=== PATIENT | female | born 1955 | race Caucasian/White ===

== ENCOUNTER → 2016-11-26 | Outpatient (CLI) | payer OTHER ==
--- NOTE | 2016-11-26 18:16 | DX ---
Chest, Two Views - November 26, 2016, at 1654 hours History: Productive cough. R05. History of LIZBETH infection. Comparison: January 2016 Findings: Cardiac silhouette is within normal range. Increased interstitial markings throughout both lungs appear similar to the January 2016 study, at which time a CT demonstrated progressive LIZBETH disease . No interval improvement or definite new infiltrates. Cervical fusion hardware. No pleural effusion or pneumothorax. Impression: 1. Diffuse bilateral interstitial opacities without significant change since January 2016, probably rep resenting severe diffuse LIZBETH infection without definite new infiltrates. 2. Consider CT chest imaging if clinically indicated.
== END ==
LOC: FIMAGING 16:55
PROVIDERS: ATTEND Internal Medicine Infectious Disease
DX: J98.4 Other disorders of lung (principal); I25.2 Old myocardial infarction

== ENCOUNTER → 2016-12-14 | Outpatient (CLI) | payer OTHER | LOC: FIMAGING 15:07 | PROVIDERS: ATTEND Internal Medicine Infectious Disease | DX: A31.0 Pulmonary mycobacterial infection (principal); A43.9 Nocardiosis, unspecified; R05 Cough ==

== ENCOUNTER → 2017-02-21 | Outpatient (CLI) | payer OTHER | PROVIDERS: ATTEND Internal Medicine Gastroenterology | DX: R13.12 Dysphagia, oropharyngeal phase (principal); A31.0 Pulmonary mycobacterial infection | CPT/HCPCS: 92611-GN ==

== ENCOUNTER → 2017-04-09 | Outpatient (CLI) | payer OTHER | LOC: CIMAGING 15:13 | PROVIDERS: ATTEND Neurological Surgery | DX: Z09 Encounter for follow-up examination after completed treatment for conditions other than malignant neoplasm (principal); Z98.1 Arthrodesis status | CPT/HCPCS: 72050-PO ==

== ENCOUNTER → 2017-05-03 | Outpatient (CLI) | payer OTHER ==
[~2017-05-03] MED LIST: IOPAMIDOL (ISOVUE 370) 100 ML BTL IV ONE
== END ==
LOC: FIMAGING 07:54
PROVIDERS: ATTEND Neurological Surgery
DX: M50.323 Other cervical disc degeneration at C6-C7 level (principal); M89.38 Hypertrophy of bone, other site; J98.4 Other disorders of lung; Z98.1 Arthrodesis status
CPT/HCPCS: Q9967

== ENCOUNTER → 2017-06-25 | Outpatient (CLI) | payer OTHER | LOC: FIMAGING 08:16 | PROVIDERS: ATTEND Obstetrics & Gynecology | DX: Z12.31 Encounter for screening mammogram for malignant neoplasm of breast (principal) | CPT/HCPCS: G0202 ==

== ENCOUNTER 2017-06-28 05:36 | Inpatient (IN) | payer OTHER ==
[2017-06-28] MEDS ORDERED: GABAPENTIN 300 MG CAP PO ONE (05:41)
[2017-06-28] MEDS ORDERED: ceFAZolin 2 GM/DEXTROSE 100 ML IV ONE (05:41)
[2017-06-28] MEDS ORDERED: ACETAMINOPHEN 500 MG TAB PO ONE (05:41)
[2017-06-28] MEDS ORDERED: LR 1,000 ML IV ONE (06:20)
[2017-06-28] MEDS ORDERED: LIDOCAINE 1% 2 ML INJ ID PRN (06:20)
[2017-06-28] MEDS ORDERED: LIDOCAINE 1% 2 ML INJ ONE (06:23)
[2017-06-28] MEDS ORDERED: BACITRACIN 50,000 UNITS/10 ML SYR IRR ONE (06:24)
[2017-06-28] MEDS ORDERED: SURGIFLO MATRIX KIT WITH THROMBIN TP ONE (06:24)
[2017-06-28] MEDS ORDERED: THROMBIN (BOVINE) 20,000 UNIT VIAL TP ONE (06:24)
[2017-06-28] MEDS ORDERED: CHLORHEXIDINE GLUC HIBICLENS 118 ML BTL TP ONE (06:24)
[2017-06-28] MEDS ORDERED: MIDAZOLAM 2 MG/2 ML VIAL IVP ONE (06:46)
--- NOTE | 2017-06-28 06:51 | PDANEPAE ---
ANE History of Present Illness 62 yo F w h/o cervical spine injury here for C6-7 ACDF ANE Past Medical History - Cardiovascular History Hx Hypertension: No Hx Arrhythmias: No Hx Chest Pain: No Hx Coronary Artery / Peripheral Vascular Disease: No Hx CHF / Valvular Disease: No Hx Palpitations: No Cardiovascular History Comment: LOW BP - Pulmonary History Hx COPD: No Hx Asthma/Reactive Airway Disease: Yes Hx Recent Upper Respiratory Infection: Yes Hx Oxygen in Use at Home: No Hx Sleep Apnea: No Sleep Apnea Screening Result - Last Documented: Negative Pulmonary History Comment: Uses 2 inhalers BID. MYCOBACTERIUM AVIUM COMPLEX LUNG DISEASE 2007. BRONCHOPNEUMONIA 01/15/2016. 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 Concussion 1999. - Endocrine History Hx Diabetes: No Endocrine History Comment: HYPOTHYROID - Renal History Hx Renal Disorders: Yes Renal History Comment: urgency - Liver History Hx Hepatic Disorders: No - Neurological & Psychiatric Hx Hx Neurological and Psychiatric Disorders: Yes Neurological / Psychiatric History Comment: L arm weakness, herniated disc C6/ 7. Cervical stenosis. Neuropathy in legs. Pain -post neck. - Cancer History Hx Cancer: No - Congenital Disorder History Hx Congenital Disorders: No - GI History Hx Gastrointestinal Disorders: No Gastrointestinal History Comment: GERD - Other Health History Other Health History: thrush. Osteopenia. Difficulty swallowing pills. will remove stitches 06-20-17 s/p gum sx. - Chronic Pain History Chronic Pain: Yes (COUGH) - Surgical History Prior Surgeries: Gum grafting at oral MD's office 06-06-17;. CERVICAL 12/15/ FUSION 2002. LAPAROTOMY . laparoscopies (total of 6). HYSTERECTOMY 1988. bilat inguinal hernia ANE Review of Systems Review of Systems: - Exercise capacity METS (RN): 4 METS ANE Patient History - Allergies Allergies/Adverse Reactions: ethambutol Allergy (Verified 06/12/17 15:15) Other-Enter Comments morphine Allergy (Verified 06/12/17 15:15) Loss of consciousness - Home Medications Home medications: home medication list seen and reviewed Home Medications: Ascorbic Acid [Vitamin C 500 mg (*)] 500 mg PO BID 01/14/16 [Last Taken 21:00] Cholecalciferol Vit D3 [Vitamin D3 (*)] 2,000 units PO BID 01/14/16 [Last Taken 01/13/16 21:00] Estradiol [Minivelle] 0.1 mg TD SUWE 01/14/16 [Last Taken 01/11/16] Ibuprofen [Motrin (*)] 800 mg PO TID PRN 01/14/16 [Last Taken 01/13/16 18:00] Promethazine HCl/Codeine [Prometh-Codein 6.25-10 mg/5 ml] 5 ml PO TID PRN [Last Taken 01/13/16 21:00] Thyroid [[place]see Thyroid 60 MG (*)] 60 mg PO DAILY@01/14/16 [Last Taken 07:00] guaiFENesin [Guaifenesin ER] 1,200 mg PO DAILY PRN 01/14/16 [Last Taken 07:00] Albuterol Sulfate [Ventolin Hfa] 2 puffs IH BID PRN 06/03/17 [Last Taken Unknown ] Beclomethasone Qvar 80 [Qvar 80 (*)] 2 puffs IH BID 06/03/17 [Last Taken Unknown ] Benzonatate [Tessalon Pearles] 100 mg PO TID PRN 06/03/17 [Last Taken Unknown] Esomeprazole Mag Trihydrate [Nexium] 40 mg PO DAILY 06/03/17 [Last Taken Unknown ] Glucosam/Chondr/Collagn/Hyalur [Glucosamine & Chondroitin Cap] 1 each PO BID [Last Taken Unknown] Nystatin Susp [Mycostatin Oral Liquid] 15 ml PO DAILY PRN 06/03/17 [Last Taken Unknown] Sulfamethox/Tmp 800/160 mg [Bactrim Ds] 1 tab PO BID 06/03/17 [Last Taken Unknown] - NPO status NPO Since - Liquids (Date): 06/28/17 NPO Since - Liquids (Time): 00:01 NPO Since - Solids (Date): 06/27/17 NPO Since - Solids (Time): 19:30 - Anes Hx Anes Hx: post operative nausea - Smoking Hx Smoking Status: Former smoker - Alcohol Use Alcohol Use: Rarely - Family Anes Hx Family Anes Hx: none ANE Labs/Vital Signs - Vital Signs Blood Pressure: 102/75 Heart Rate: 79 Respiratory Rate: 16 O2 Sat (%): 95 Height: 160.02 cm Weight: 55.792 kg ANE Physical Exam - Airway Neck exam: decreased ROM, spinal fusion Mallampati Score: Class 2 Mouth exam: normal dental/mouth exam - Pulmonary Pulmonary: no respiratory distress - Cardiovascular Cardiovascular: regular rate and rhythym - ASA Status ASA Status: III ANE Anesthesia Plan Anesthesia Plan: general endotracheal anesthesia (1/2 MAC volatile) Specialized Airway: video laryngoscope Total IV Anesthesia: Yes
--- NOTE | 2017-06-28 06:55 | PDHPUP ---
History & Physical Update H&P update statement: This history and physical update is based on an assessment of the patient which was completed after admission or registration (within 24 hours), but prior to the surgery/procedure. H&P update: H&P reviewed & patient examined, no change in patient's condition since H&P completed (Consents signed and site marked. Surgery to be completed with Dr Power of ENT.)
[2017-06-28] MEDS ORDERED: REMIFENTANIL HCL 1 MG VIAL ONE (07:01)
[2017-06-28] MEDS ORDERED: fentaNYL 100 MCG/2 ML INJ ONE ×2 (07:01→09:13)
[2017-06-28] MEDS ORDERED: PROPOFOL/EMULSION 500 MG/50 ML BOTTLE IV ONE (07:02)
[2017-06-28] MEDS ORDERED: PROPOFOL 200 MG/20 ML VIAL ONE (07:02)
[2017-06-28] MEDS ORDERED: ROCURONIUM 50 MG/5 ML VIAL ONE (07:11)
[2017-06-28] MEDS ORDERED: LIDOCAINE 2% 100 MG/5 ML SYR ONE (07:11)
[2017-06-28] MEDS ORDERED: DEXAMETHASONE 4 MG/ML VIAL ONE (07:46)
[2017-06-28] MEDS ORDERED: ONDANSETRON 4 MG/2 ML VIAL ONE (07:52)
[2017-06-28] MEDS ORDERED: NYSTATIN PO PRN (08:13)
[2017-06-28] MEDS ORDERED: BENZONATATE 100 MG CAP PO PRN (08:13)
[2017-06-28] MEDS ORDERED: GUAIFENESIN 1200 MG PO PRN (08:13)
[2017-06-28] MEDS ORDERED: PROMETHAZINE HCL PO PRN ×2 (08:13→11:30)
[2017-06-28] MEDS ORDERED: CODEINE PO PRN ×2 (08:13→11:30)
[2017-06-28] MEDS ORDERED: DIAZEPAM 10 MG/2 ML SYR IVP PRN (08:15)
[2017-06-28] MEDS ORDERED: POLYETHYLENE GLYCOL 3350 17 GM PKT PO PRN (08:15)
[2017-06-28] MEDS ORDERED: LACTULOSE 20 GM/30 ML UDCUP PO PRN (08:15)
[2017-06-28] MEDS ORDERED: DIAZEPAM 5 MG TAB PO PRN (08:15)
[2017-06-28] MEDS ORDERED: diphenhydrAMINE 25 MG CAP PO PRN (08:15)
[2017-06-28] MEDS ORDERED: NS 1,000 ML IV SCH (08:15)
[2017-06-28] MEDS ORDERED: BISACODYL 10 MG SUPP PR PRN (08:15)
[2017-06-28] MEDS ORDERED: PROMETHAZINE HCL 25 MG/ML INJ IVP PRN ×2 (08:15→09:08)
[2017-06-28] MEDS ORDERED: MAGNESIUM HYDROXIDE 30 ML UDCUP PO PRN (08:15)
[2017-06-28] MEDS ORDERED: HYDROmorphONE/DILAUDID 1 MG/ML INJ IVP PRN ×2 (08:20→09:08)
[2017-06-28] MEDS ORDERED: traMADol 50 MG TAB PO PRN (08:21)
[2017-06-28] MEDS ORDERED: NON-FORMULARY NEW DRUG (Esomeprazole Mag Trihydrate [Nexium] 40 MG) PO SCH (09:00)
[2017-06-28] MEDS ORDERED: fentaNYL 100 MCG/2 ML INJ IVP PRN (09:08)
[2017-06-28] MEDS ORDERED: ONDANSETRON 4 MG/2 ML VIAL IVP PRN (09:08)
[2017-06-28] MEDS ORDERED: OXYCODONE/APAP 5/325 TAB PO PRN (09:08)
[2017-06-28] MEDS ORDERED: NALOXONE HCL 0.4 MG/ML INJ IVP PRN (09:08)
[2017-06-28] MEDS ORDERED: SUGAMMADEX SODIUM 200 MG/2 ML VIAL IVP ONE (09:26)
--- NOTE | 2017-06-28 10:13 | POSTOPPROG ---
Post Op Note Date of Operation: 06/28/17 Surgeon: Bhakti Robertson Software Project Lead: Josi Robertson PA-C Anesthesiologist: Toña Anesthesia: GET(General Endotracheal) Pre-op Diagnosis: Cervical stenosis Post-op Diagnosis: same Indication: left arm pain and weakness Procedure: C67 ACDF with prior hardware exploration and removal Findings: Please see dictation Inf/Abcess present in the surg proc area at time of surgery?: No Depth: Organ Space EBL: 50-100 Complications: none Drains: Hugo Lemus Specimen(s): none PA Addendum - Addendum .: S: Pt resting in bed. Denies pain. 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
[2017-06-28] MEDS ORDERED: NYSTATIN 100000 UNIT/ML PO PRN (11:30)
[2017-06-28] MEDS: oxyCODONE IR 5 MG TAB PO PRN ×5 (11:32→21:24)
[2017-06-28] MEDS: ONDANSETRON 4 MG/2 ML VIAL IVP PRN (11:42)
[2017-06-28] MEDS: BECLOMETHASONE QVAR 80 MDI IH SCH ×2 (11:52→21:14)
--- NOTE | 2017-06-28 13:19 | GOP ---
[f rep st] OPERATIVE REPORT DATE OF OPERATION: 06/28/2017 SURGEON: Hans Logan MD COMPLICATIONS: None. REAL ESTATE LEGAL ASSISTANT: MAURICIO Rangel ANESTHESIA: General. PREOPERATIVE DIAGNOSIS: 1. Adjacent level breakdown, C6-C7 with history of anterior cervical fusion. 2. Cervicalgia. 3. Radiculopathy. 4. Treatment refractory to nonoperative management. POSTOPERATIVE DIAGNOSIS: 1. Adjacent level breakdown, C6-C7 with history of anterior cervical fusion. 2. Cervicalgia. 3. Radiculopathy. 4. Treatment refractory to nonoperative management. PROCEDURE PERFORMED: 1. Anterior arthrodesis with approach to C5, C6, and C7. 2. Exploration of prior inferior hardware, C5-C6 with subsequent partial hardware removal over C5-C6. 3. C6-C7 diskectomy with bilateral foraminotomies, osteophytectomies, and interbody fusion using a 7 mm titanium coated PEEK cage filled with morselized autograft and allograft. 4. Anterior cervical fusion, C6-C7, with a 19 mm Medtronic Zevo plate. 5. Use of intraoperative fluoroscopy, less than 1 hour physician time. 6. Use of neuromonitoring. 7. Use of operating microscope. FINDINGS: per imaging with quite a bit of scar tissue from her prior left sided anterior surgical approach SPECIMENS: None. ESTIMATED BLOOD LOSS: 50 mL. INDICATIONS: The patient is a 62-year-old with a very complicated medical history, including prior anterior cervical diskectomy and fusion, after which she developed adjacent level breakdown, C6-C7. We discussed multiple different options for her, and she opted to proceed forth with surgery as described above. DESCRIPTION OF PROCEDURE: Patient brought to the operating theater and underwent general endotracheal anesthesia without complications. She had Venodyne's, RACHEL hose, and the appropriate lines placed by Anesthesia. At this point, using lateral fluoroscopy and a spinal needle, we picked our entry point to the C5, C6, and C7 levels. This was marked as a transverse incision on the left side of her neck. This area was then prepped and draped in the usual sterile surgical fashion. With the assistance of Dr. Jun Power of ENT, we then completed an anterior exposure into the C5, C6, C7 levels. He will dictate in a separate operative report the anterior cervical approach. Once we completed our exposure, we had access to the inferior aspect of the plate over C5/6 and lupe C6/7 disc space. At this point, I did not feel I could get a plate on at the C6-C7 level because of its proximity to the C6/7 dic space. I therefore used a cutting carbide bur bit to cut the plate between the C5-C6 level and removed the 2 screws that were into the C6 vertebral body and subsequently removed the cut CSLT plate and screws and passed them off the field. We explored this level and she was noted to be solidly fused at this level given the bony overgrowth. At this point, we brought the microscope into the field to assist with microscopic dissection and to maintain illumination and magnification. We put [place] pins into the vertebral bodies of C6 and C7 and completed a C6-7 diskectomy. We prepared the cartilaginous endplates and measured interbody space. We placed a 7 mm titanium coated PEEK cage filled with morselized autograft and allograft into the C6-C7 disk space. We removed the [place] pins and drilled down the anterior osteophytes. We then secured a 19 mm Medtronic Zevo plate onto the vertebral bodies of C6 and C7. AP and lateral x-rays demonstrated good placement of the hardware. We irrigated copiously with bacitracin irrigation. We left a drain in the subfascial space. The wound was then closed in multiple layers using Vicryl sutures to deep layers and Dermabond for the skin. Patient's wounds were dressed sterilely. She was then awakened, extubated, and taken to the recovery room in stable condition. There were no complications and no noted changes on neuromonitoring throughout the procedure. /[id number]/MODL MTDD
[2017-06-28] MEDS: ACETAMINOPHEN 500 MG TAB PO SCH ×2 (13:41→21:24)
[2017-06-28] MEDS: ceFAZolin 2 GM/DEXTROSE 100 ML IV SCH ×2 (14:46→23:37)
[2017-06-28] MEDS: SCOPOLAMINE HYDROBROMIDE 1 MG/3 DAYS PATCH TD SCH (15:06)
[2017-06-28] MEDS: FAMOTIDINE 20 MG TAB PO SCH ×2 (15:07→21:18)
[2017-06-28] MEDS: CHOLECALCIFEROL VIT D3 1,000 UNITS TAB PO SCH ×2 (15:07→21:18)
[2017-06-28] MEDS: ASCORBIC ACID 500 MG TAB PO SCH ×2 (15:07→21:19)
[2017-06-28] MEDS: SENNOSIDES/DOCUSATE SODIUM TAB PO SCH ×2 (15:07→21:16)
--- NOTE | 2017-06-28 16:45 | POSTANESTH ---
Post Anesthetic Evaluation Cardiovascular Status: Normal, Stable, Similar to Pre-Op Cond Respiratory Status: Normal, Stable, Similar to Pre-op Cond. Level of Consciousness/Mental Status: Can Participate in Eval, Alert and Oriented Pain Control: Adequate, Prn Tx Ordered, Inadeq, Add Tx Required Nausea/Vomiting Control: Adequate, Prn Tx Ordered, Inadeq, Add Tx Reqired Complications Possibly Related to Anesthesia: None Noted
[2017-06-28] MEDS ORDERED: FLU VACC QS 2017-18 (3YR+)/PF 0.5 ML SYR (FLUARIX QUAD) IM ONE (19:51)
[2017-06-28] MEDS: ALBUTEROL 200 PUFFS/18 GM MDI IH PRN (21:15)
[2017-06-28] MEDS: SULFAMETHOX/TMP 800/160 MG 1 TAB PO SCH ×2 (21:18→22:05)
[2017-06-29] MEDS: oxyCODONE IR 5 MG TAB PO PRN ×6 (01:30→23:12)
[2017-06-29] MEDS: BENZONATATE 100 MG CAP PO PRN ×2 (03:50→20:18)
[2017-06-29] MEDS: guaiFENesin 600 MG TAB.ER PO PRN ×2 (03:52→20:30)
[2017-06-29] MEDS: ACETAMINOPHEN 500 MG TAB PO SCH ×3 (06:17→20:19)
[2017-06-29] MEDS: ALBUTEROL 200 PUFFS/18 GM MDI IH PRN ×3 (06:18→20:27)
[2017-06-29] MEDS: THYROID 60 MG TAB PO SCH (06:18)
[2017-06-29] MEDS: BECLOMETHASONE QVAR 80 MDI IH SCH ×2 (06:18→20:27)
--- NOTE | 2017-06-29 07:38 | NEUSURGPN ---
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 Subjective: Mild tenderness over the incision. Nnamdi difficulty with breathing Objective: NAD A&Ox3 MAEx4 5/5 and equal in BUE and BLE. Neck soft, supple, no edema - Physician Discussed Patient with Dr.: Holli Neurosurgery Physical Exam - Vitals, I&O, Labs I and O 06/28/17 06/29/17 06/30/17 05:59 05:59 05:59 Intake Total 1700 Output Total 2770 Balance -1070 Weight 55.792 kg Intake: Oral (ml) 400 IV Intake (ml) 1200 IV Infused (ml) 100 ceFAZolin 2 GM/DEXTROSE 100 100 ml @ 200 mls/hr IV Q8H [facility] Rx#:[id number] Output: Urine (ml) 2750 Bedside Commode 200 Toilet 2550 ROMAINE Drain Output (ml) 20 Anterior Neck Hugo 20 Lemus Vital Signs Temp Pulse Resp BP Pulse Ox 36.4 C 68 18 110/59 L 97 06/29/17 03:41 06/29/17 03:41 06/29/17 03:41 06/29/17 03:41 06/29/17 03:41 ICD10 Worksheet Patient Problems: Problems Problem Status Onset Chest pain on breathing Acute LIZBETH (mycobacterium avium-intracellulare) infection Acute Multifocal lung consolidation Acute Pneumonia Acute
[2017-06-29] MEDS: CHOLECALCIFEROL VIT D3 1,000 UNITS TAB PO SCH ×2 (09:00→20:36)
[2017-06-29] MEDS: FAMOTIDINE 20 MG TAB PO SCH ×2 (09:01→20:22)
[2017-06-29] MEDS: ASCORBIC ACID 500 MG TAB PO SCH ×2 (09:01→20:22)
[2017-06-29] MEDS: SULFAMETHOX/TMP 800/160 MG 1 TAB PO SCH ×2 (09:01→20:21)
[2017-06-29] MEDS: ONDANSETRON DISINTEGRATING 4 MG TAB PO PRN (09:02)
[2017-06-29] MEDS: SENNOSIDES/DOCUSATE SODIUM TAB PO SCH ×2 (09:02→20:18)
[2017-06-29 09:07] LABS: % IMMATURE GRANULYOCYTES 0.2 % (0.0-1.1); ABSOLUTE IMMATURE GRANULOCYTES 0.02 10^3/uL (0.00-0.10); ADD DIFF? NO; ADD MORPH? NO; ADD SCAN? NO; ATYPICAL LYMPHOCYTE FLAG 0 (0-99); FRAGMENT RBC FLAG 0 (0-99); HEMATOCRIT 36.2 % (38.0-47.0); HEMOGLOBIN 11.7 g/dL (12.6-16.3); LEFT SHIFT FLG 0 (0-99); LIPEMIA HEMOLYSIS FLAG 80 (0-99); MEAN CELL HEMOGLOBIN 30.2 pg (27.9-34.1); MEAN CELL HEMOGLOBIN CONCENTR. 32.3 g/dL (32.4-36.7); MEAN CELL VOLUME 93.3 fL (81.5-99.8); MEAN PLATELET VOLUME 9.1 fL (8.7-11.7); PLATELET CLUMPS FLAG 10 (0-99); PLATELET COUNT 256 10^3/uL (150-400); RED BLOOD CELL COUNT 3.88 10^6/uL (4.18-5.33); RED CELL DISTRIBUTION WIDTH 12.8 % (11.5-15.2)
[2017-06-29] MEDS: PANTOPRAZOLE SODIUM 40 MG TAB PO SCH (09:10)
[2017-06-29 09:18] LABS: ANION GAP 10 mEq/L (8-16); CALCIUM 9.1 mg/dL (8.5-10.4); CARBON DIOXIDE 24 mEq/l (22-31); CHLORIDE 104 mEq/L (97-110); CREATININE 0.7 mg/dL (0.6-1.0); GLOMERULAR FILTRATION RATE > 60; GLUCOSE 119 mg/dL (70-100); POTASSIUM 3.8 mEq/L (3.5-5.2); SODIUM 138 mEq/L (134-144)
--- NOTE | 2017-06-29 09:32 | GCON ---
[f rep st] CONSULTATION DATE OF CONSULTATION: 06/29/2017 REASON FOR CONSULTATION: I was asked by Dr. Logan to see the patient in regard to her history of MA C, as well as increased cough. HISTORY OF PRESENT ILLNESS: This is a 62-year-old female, who is postop day #1 after an ACDF by Dr. Logan. The operation itself was relatively unremarkable. She has expected postoperative pain. She has a history of bronchiectasis, as well as MAC and Nocardia, followed by Doctors and Ryan as an outpatient. This began in 2007, when she was diagnosed with MAC. At that time, she underwent 2 years of appropriate AFB treatment including ethambutol, rifabutin, azithromycin and moxifloxacin. She had been seen at [facility] as well. She had some vision loss, which was attributed to eth ambutol. 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 After that, she was doing relatively well until January of last year, whe n she was admitted for pneumonia. Sputum cultures then grew out both MAC, as well as Nocardia. The Nocardia was targeted for treatment, feeling that if the Nocardia burden was kept down her body would keep the MAC under check itself. She initially underwent a course of moxifloxacin, and then had bee n changed to Bactrim. Current plans are to have her on indefinite chronic Bactrim. She tells me that for about the last week of surgery she has had an increasing cough. She thinks yenifer t she has had some night sweats as well overnight. She feels slightly more dyspneic than normal, tho ugh she is normally quite active. After her surgery, she coughed up a significant amount of sputum, which is a change for her. PAST MEDICAL/SURGICAL HISTORY: 1. History of MAC. 2. Bronchiectasis. 3. Nocardia. 4. Concussion. 5. GERD. 6. Hypothyroid. 7. IgM deficiency. MEDICATIONS: Please see medication reconciliation. ALLERGIES: Ethambutol, morphine. FAMILY HISTORY: Reviewed and noncontributory. SOCIAL HISTORY: She lives at home with her . She drinks about 1 glass of wine a week. She d oes not smoke. REVIEW OF SYSTEMS: A 10-point review of systems is conducted and is negative except per HPI. PHYSICAL EXAM: VITAL SIGNS: Blood pressure 110/59, heart rate 68, respiration rate 18, saturating 9 7% on 2 L. Temperature 36.4. GENERAL: A very pleasant female who is resting comfortably. No acute distress. HEENT: Normocephalic, atraumatic. NECK: Soft collar in place. She has a ROMAINE drain with blood. CARDIOVASCULAR: Regular rate and rhythm. No murmurs, rubs, or gallops. PULMONARY: No res piratory distress. LUNGS: Quite clear to auscultation bilaterally. ABDOMEN: Soft, nontender, nond istended. SKIN: Shows no rash. : No Hua. NEUROLOGIC: Alert and oriented x3. She is moving a ll extremities. PSYCHIATRIC: Exam shows normal mood and affect. LABS: These are pending. DATA: 1. I reviewed her chart. 2. I ordered a chest x-ray. 3. I discussed this with ROCKY Crenshaw. IMPRESSION & PLAN: A 62-year-old female, postoperative day #1 status post anterior cervical discecto my and fusion, who presents with symptoms concerning for reactivation of Nocardia or MAC. 1. Cough/increased sputum production: Certainly concerning for reactivation of her known disease. May also be typical respiratory pathogen, including other viruses or bacteria. Will initiate workup with a set of labs, chest x-ray, sputum culture, respiratory pathogen PCR. We will provide her suppo rtive care including inhalers, continue her incentive spirometer, flutter valve. We will discuss paulina Rogel. Further workup and treatment will depend on findings from the above. 2. Postoperative day #1 status post ACDF: Care per Neurosurgery. Plan is to take ROMAINE drain out toda y. 3. Hypothyroid: Continue Synthroid. Thank you for involving Hospital Medicine in the care of the patient. We will continue to follow paulina rodriguez. /[id number]/MODL
--- NOTE | 2017-06-29 14:56 | ASMTCMCOM ---
CM Note CM Note Notes: PPt admitted for planned surgery. OT has cleared pt to go home, PT has not seen. Anticpate pt will have no DC needs. Date Signed: 06/29/2017 02:55 PM Electronically Signed By:Angela Ramirez LCSW
[2017-06-29] MEDS: ACETYLCYSTEINE 10% 30 ML VIAL IH SCH ×3 (17:05→23:52)
--- NOTE | 2017-06-29 17:33 | GCON ---
[f rep st] CONSULTATION PULMONARY/CRITICAL CARE DATE OF CONSULTATION: 06/29/2017 REFERRING PHYSICIAN: Renny Gonzales MD REASON FOR REFERRAL: Evaluation and management of cough and hypoxemia. HISTORY OF PRESENT ILLNESS: The patient is a 62-year-old woman with a history of MAC and nocardia fo llowed by Drs. Schmitz and Ryan. She was admitted for an elective anterior cervical diskectomy and fus ion. Her intraoperative course was unremarkable. Postoperatively, she had a single episode of cough productive of a fairly large amount of sputum, which is unusual for her. This was followed by vomit ing without aspiration. Since then, she has had a nonproductive cough that has been more frequent th an usual. She also has had some hypoxemia, desaturating to the mid to upper 80s when off oxygen. PAST MEDICAL HISTORY: 1. History of MAC. She was diagnosed in 2007 and was treated at [facility] with 2 years of 4-d rug therapy. She was then diagnosed with nocardia and was treated with Bactrim for 2 years. She did well until 2016 when she was admitted with pneumonia and grew out MAC and nocardia. She was restart ed on Bactrim and has remained on chronic suppressive Bactrim since then. 2. Bronchiectasis. 3. History of concussion. 4. IgM deficiency. MEDICATIONS: At the time of admission include vitamin C, estradiol, ibuprofen, guaifenesin, thyroid replacement, Ventolin, Nexium, Tessalon, beclomethasone, Bactrim, and nystatin. ALLERGIES: Ethambutol and morphine. SOCIAL HISTORY: The patient lives at home with her . She does not smoke and drinks alcohol i nfrequently. FAMILY HISTORY: Unremarkable. REVIEW OF SYSTEMS: A 10-point review of systems adds nothing to the history of present illness. PHYSICAL EXAMINATION: GENERAL: The patient is awake, alert, in no acute distress. VITALS: Blood p ressure is 114/55, with a heart rate of 72. She is afebrile. Oxygen saturations are 87% on room air walking, 89% on room air at rest, and 94% on supplemental oxygen at 2 L per minute. HEENT: Normoce phalic and atraumatic. No icterus. NECK: She has a soft collar in place. She has a healing incisi on. CHEST: She has some rales in both bases. She has some scattered rales bilaterally. CARDIAC: Regular rate and rhythm without murmur. ABDOMEN: Soft, nontender. Bowel sounds are present. EXTRE MITIES: No clubbing, cyanosis, or edema. NEURO: The patient is awake, alert. Cranial nerves are i ntact and she has no motor weakness. LABORATORY DATA: Hemoglobin is 11.7. A chemistry group is normal. IMAGING: A chest x-ray shows some unchanged patchy interstitial nodular infiltrates when compared to her prior chest x-ray from November 2016. Images reviewed. A CT scan from December 2016 shows scatter ed nodular interstitial infiltrates and some [id number] bronchiectasis without significant muco us plugging. ASSESSMENT: 1. Cough. This is likely due to some increase in the patient's secretions from surgery that are rel ated to her underlying bronchiectasis. Her cough was initially productive postoperatively, but is no w nonproductive. 2. Hypoxemia. This is also likely due to some atelectasis related to mucous retention from her bron chiectasis. It corrects with supplemental oxygen next. 3. History of nocardia. The patient is on Bactrim chronic suppressive therapy. 4. Mycobacterium avium complex. RECOMMENDATIONS: 1. Resume guaifenesin. Try Mucinex. 2. Continue supplemental oxygen. She should probably be discharged on supplemental oxygen for a wee k or two until she fully recovers. The patient is ambulatory in and out of the home, and so should q ualify based on her oxygen saturations here in the hospital. From my standpoint, she can go home as long as she has supplemental oxygen. She can follow up with Dr. Davis or myself in the office in a w [place] or two. /[id number]/MODL
[2017-06-29] MEDS ORDERED: ALBUTEROL 3 ML DEYVIAL ONE (18:14)
[2017-06-29] MEDS: ALBUTEROL 3 ML DEYVIAL IH SCH ×2 (18:30→23:52)
[2017-06-30] MEDS: ONDANSETRON DISINTEGRATING 4 MG TAB PO PRN ×3 (02:08→20:01)
[2017-06-30] MEDS: ONDANSETRON 4 MG/2 ML VIAL IVP PRN (03:54)
[2017-06-30] MEDS: ACETAMINOPHEN 500 MG TAB PO SCH ×3 (05:40→23:00)
[2017-06-30] MEDS: ALBUTEROL 3 ML DEYVIAL IH SCH ×3 (06:09→17:19)
[2017-06-30] MEDS: ACETYLCYSTEINE 10% 30 ML VIAL IH SCH ×3 (06:09→17:19)
--- NOTE | 2017-06-30 08:46 | HOSPPROG ---
Hospitalist Progress Note Assessment/Plan: # suspected constipation/mild narcotic ileus- will check AXR if not relieved by BM this am # hx MAC and nocardia pulm infections - CXR with out significant change; mostly with subjective symptoms at this point - sputum culture not collected - collect if possible - f/u with pulm/ID # ACDF POD#1 # hypothyroid - synthroid Subjective: difficult night; feels constipated, had emesis Objective: Vital Signs Temp Pulse Resp BP Pulse Ox 36.1 C 70 14 148/55 H 96 06/30/17 07:35 06/30/17 07:35 06/30/17 07:35 06/30/17 07:35 06/30/17 07:35 Microbiology 06/29/17 13:40 Respiratory Panel (PCR) - Final Nasal, Sinus - Swab No Organism Detected Laboratory Results 06/29/17 08:48 06/29/17 08:48 06/29/17 06/30/17 07/01/17 05:59 05:59 05:59 Intake Total 1700 1380 350 Output Total 2770 3015 Balance -1070 -[address] Rogel CXR personally reviewed - Physical Exam Constitutional: other (pale) Cardiovascular: regular rate and rhythym, no murmur, rub, or gallop Respiratory: no respiratory distress, no rales or rhonchi, clear to auscultation Gastrointestinal: no palpable masses, distension (mild), other (soft, mild TTP) , No guarding, No rebound ICD10 Worksheet Patient Problems: Problems Problem Status Onset LIZBETH (mycobacterium avium-intracellulare) infection Acute Multifocal lung consolidation Acute Chest pain on breathing Acute Pneumonia Acute
[2017-06-30] MEDS: ASCORBIC ACID 500 MG TAB PO SCH ×2 (09:00→20:00)
[2017-06-30] MEDS: CHOLECALCIFEROL VIT D3 1,000 UNITS TAB PO SCH ×2 (09:00→20:00)
[2017-06-30] MEDS ORDERED: ESTRADIOL VIVELLE 0.1 MG PATCH TD SCH (09:00)
[2017-06-30] MEDS ORDERED: ESTRADIOL VIVELLE 0.025 MG PATCH TD SCH (09:00)
--- NOTE | 2017-06-30 10:00 | NEUSURGPN ---
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 Incision c/d/i. neck soft supple, no edema - Physician Discussed Patient with DrWisam: Doreen Neurosurgery Physical Exam - Vitals, I&O, Labs I and O 06/29/17 06/30/17 07/01/17 05:59 05:59 05:59 Intake Total 1700 1380 350 Output Total 2770 3015 Balance -1070 -1635 350 Weight 55.792 kg Intake: Oral (ml) 400 1380 350 IV Intake (ml) 1200 IV Infused (ml) 100 ceFAZolin 2 GM/DEXTROSE 100 100 ml @ 200 mls/hr IV Q8H [facility] Rx#:[id number] Output: Urine (ml) 2750 3000 Bedside Commode 200 Toilet 2550 3000 ROMAINE Drain Output (ml) 20 15 Anterior Neck Hugo 20 15 Lemus Other: Intake Quantity Yes Sufficient Number of Voids Toilet 2 1 Number of Stools Toilet 1 Microbiology 06/29/17 13:40 Respiratory Panel (PCR) - Final Nasal, Sinus - Swab No Organism Detected Vital Signs Temp Pulse Resp BP Pulse Ox 36.1 C 70 14 148/55 H 96 06/30/17 07:35 06/30/17 07:35 06/30/17 07:35 06/30/17 07:35 06/30/17 07:35 Laboratory Results 06/29/17 08:48 06/29/17 08:48 ICD10 Worksheet Patient Problems: Problems Problem Status Onset Chest pain on breathing Acute LIZBETH (mycobacterium avium-intracellulare) infection Acute Multifocal lung consolidation Acute Pneumonia Acute
[2017-06-30] MEDS: ALBUTEROL 200 PUFFS/18 GM MDI IH PRN ×2 (10:55→20:11)
[2017-06-30] MEDS: BECLOMETHASONE QVAR 80 MDI IH SCH ×2 (10:55→20:13)
[2017-06-30] MEDS: THYROID 60 MG TAB PO SCH (12:39)
[2017-06-30] MEDS: PANTOPRAZOLE SODIUM 40 MG TAB PO SCH (12:39)
[2017-06-30] MEDS: FAMOTIDINE 20 MG TAB PO SCH ×2 (12:39→20:00)
[2017-06-30] MEDS: oxyCODONE IR 5 MG TAB PO PRN ×3 (12:39→23:01)
[2017-06-30] MEDS: SULFAMETHOX/TMP 800/160 MG 1 TAB PO SCH ×2 (13:53→20:00)
[2017-06-30] MEDS: SENNOSIDES/DOCUSATE SODIUM TAB PO SCH ×2 (13:55→20:01)
[2017-07-01] MEDS: ACETYLCYSTEINE 10% 30 ML VIAL IH SCH ×3 (01:11→09:21)
[2017-07-01] MEDS: ALBUTEROL 3 ML DEYVIAL IH SCH ×3 (01:11→09:20)
[2017-07-01] MEDS: ACETAMINOPHEN 500 MG TAB PO SCH ×2 (03:57→12:17)
[2017-07-01] MEDS: oxyCODONE IR 5 MG TAB PO PRN ×3 (03:59→12:17)
[2017-07-01 07:20] VITALS: TEMP 97.6
[2017-07-01] MEDS: FAMOTIDINE 20 MG TAB PO SCH (07:56)
[2017-07-01] MEDS: SULFAMETHOX/TMP 800/160 MG 1 TAB PO SCH (07:57)
[2017-07-01] MEDS: CHOLECALCIFEROL VIT D3 1,000 UNITS TAB PO SCH (07:57)
[2017-07-01] MEDS: ASCORBIC ACID 500 MG TAB PO SCH (07:57)
[2017-07-01] MEDS: THYROID 60 MG TAB PO SCH (07:58)
[2017-07-01] MEDS: SENNOSIDES/DOCUSATE SODIUM TAB PO SCH (07:58)
[2017-07-01] MEDS: SCOPOLAMINE HYDROBROMIDE 1 MG/3 DAYS PATCH TD SCH (07:59)
[2017-07-01] MEDS: PANTOPRAZOLE SODIUM 40 MG TAB PO SCH (08:02)
--- NOTE | 2017-07-01 08:05 | NEUSURGPN ---
Date of Surgery: 06/28/17 Post Op Day: 3 Assessment/Plan: Assessment: 62 yo F s/p C67 ACDF with prior hardware exploration and partial removal, Dr Power ENT assisted with exposure Plan: -no nausea this am- will monitor closely and increase antimetics as needed -PT/OT/SOFTWARE DEVELOPMENT INTERN -Pain management-continue with current plan -Soft collar for comfort only -Post op xrays with intact hardware -Appreciate medical consultation for medical comorbidities -Call NS with any issues -plan for dc later today if able and cleared by IM -d/w Dr Logan Subjective: Awake and alert, NAD. Eating/drinking and voiding. No f/c/n/v/d. Objective: NAD A&Ox3 MAEx4 5/5 and equal in BUE and BLE. Incision c/d/i. neck soft supple, no edema Neuro Check Frequency: per routine Urinary Catheter in Place: No - Physician Discussed Patient with : Dore[facility] Neurosurgery Physical Exam - Vitals, I&O, Labs I and O 06/30/17 07/01/17 07/02/17 05:59 05:59 05:59 Intake Total 1380 1310 Output Total 3015 Balance -1635 1310 Intake: Oral (ml) 1380 1310 Output: Urine (ml) 3000 Toilet 3000 ROMAINE Drain Output (ml) 15 Anterior Neck Hugo 15 Lemus Other: Intake Quantity Yes Yes Sufficient Number of Voids Toilet 2 1 Number of Stools Toilet 1 Vital Signs Temp Pulse Resp BP Pulse Ox 36.4 C 64 16 138/53 H 92 07/01/17 07:19 07/01/17 07:19 07/01/17 07:19 07/01/17 07:19 07/01/17 07:19 Laboratory Results 06/29/17 08:48 06/29/17 08:48 ICD10 Worksheet Patient Problems: Problems Problem Status Onset Chest pain on breathing Acute LIZBETH (mycobacterium avium-intracellulare) infection Acute Multifocal lung consolidation Acute Pneumonia Acute
[2017-07-01] MEDS ORDERED: ENOXAPARIN 40 MG/0.4 ML SYR SC SCH (09:00)
[2017-07-01] MEDS: ALBUTEROL 200 PUFFS/18 GM MDI IH PRN (09:06)
[2017-07-01] MEDS: BECLOMETHASONE QVAR 80 MDI IH SCH (09:06)
[2017-07-01 09:23] VITALS: RESP 14
--- NOTE | 2017-07-01 10:13 | HOSPPROG ---
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 Had large BM yesterday and feels much better today. Would continue bowel protocol while on narcotics. # hx MAC and nocardia pulm infections - CXR with out significant change; mostly with subjective symptoms at this point -f/u with pulm established # ACDF POD#2 # hypothyroid - synthroid # hypoxia: related to atelectasis with underlying chronic lung disease, has been as low as 85% on RA yesterday and would likely benefit from discharge with supplemental o2 # dispo: OK to discharge from medicine standpoint whenever ok per NSG Subjective: patient feeling well, had large bm yesterday, concerned about ongoing constipation while on pain meds and discussed continued bowel protocol Objective: Vital Signs Temp Pulse Resp BP Pulse Ox 36.4 C 71 14 138/53 H 93 07/01/17 07:19 07/01/17 09:22 07/01/17 09:22 07/01/17 07:19 07/01/17 09:22 Laboratory Results 06/29/17 08:48 06/29/17 08:48 06/30/17 07/01/17 07/02/17 05:59 05:59 05:59 Intake Total 1380 1310 Output Total 3015 Balance -1635 1310 awake alert nad anicteric soft c collar in place rrr no mrg cta soft nt no cce warm dry well perfused oriented appropriate ICD10 Worksheet Patient Problems: Problems Problem Status Onset LIZBETH (mycobacterium avium-intracellulare) infection Acute Multifocal lung consolidation Acute Chest pain on breathing Acute Pneumonia Acute
[2017-07-01 11:22] VITALS: BP 123/50; PULSE 79; O2SAT 94
--- NOTE | 2017-07-01 12:43 | PDHOMEO2F ---
Home Oxygen Face to Face Home Orders: I certify that a physician or a nurse practitioner or physician's inventory control assistant has had a hnzy-[id number]-evfw encounter with this patient on the date of this order due to the diagnosis listed, which relates to the primary reason the patient requires home oxygen. Alternative treatments have been tried, or considered, and deemed ineffective. It is anticipated that supplemental oxygen will result in improvement with treatment. Home oxygen qualifying diagnosis: hypoxia SpO2 on room air (%): 84 Frequency of home oxygen needed: during sleep Home oxygen liters per minute: tbd Home oxygen delivery device: nasal cannula Concentrator: No E-tanks for mobility and back up: No I certify that, based on these findings, the home oxygen is medically necessary for this patient for the following length of time. Length of time home oxygen needed: 99 years
--- NOTE | 2017-07-01 15:54 | ASDISCHSUM ---
Discharge Information Plan Status:Home with No Needs Medically Cleared to Leave: Discharge Date:07/01/2017 03:17 PM CM D/C Disposition: ADT D/C Disposition:Home, Routine, Self-Care Projected Discharge Date:07/01/2017 03:17 PM Transportation at D/C: Discharge Delay Reason: Follow-Up Date:07/01/2017 03:17 PM Discharge Slot: Final Diagnosis: Placement Information Patient Contact Information Contact Name:ESEQUIEL Relationship: Address:[address] Home Phone: City:[place] Alternate Phone: State/Zip Code:[place] [address] Email: Financial Information Financial Class:HMO and PPO Plans Primary Plan Desc:[facility] [employer] Primary Plan Number:[id number] Secondary Plan Desc: Secondary Plan Number: Assessment Information [facility] CM Progress Note CM Note CM Note Notes: PPt admitted for planned surgery. OT has cleared pt to go home, PT has not seen. Anticpate pt will have no DC needs. Date Signed: 06/29/2017 02:55 PM Electronically Signed By:Angela Ramirez LCSW [facility] CM Progress Note CM Note CM Note Notes: PT cleared pt for home. Pt medically stable for d/c, no CM d/c needs identified. Date Signed: 07/01/2017 03:53 PM Electronically Signed By:FAITH Bustos Intervention Information
== END 2017-07-01 15:17 | disposition home or self-care (01) | DRG 472 ==
LOC: F3N 05:36
PROVIDERS: ADMIT Neurological Surgery; ATTEND Neurological Surgery
PROC: 0RG10A0 Fusion of Cervical Vertebral Joint with Interbody Fusion Device, Anterior Approach, Anterior Column, Open Approach (ICD-10-PCS; principal; 2017-06-28 07:15)
PROC: 0RB30ZZ Excision of Cervical Vertebral Disc, Open Approach (ICD-10-PCS; principal; 2017-06-28 07:15)
PROC: 0PP304Z Removal of Internal Fixation Device from Cervical Vertebra, Open Approach (ICD-10-PCS; principal; 2017-06-28 07:15)
PROC: 0RG1070 Fusion of Cervical Vertebral Joint with Autologous Tissue Substitute, Anterior Approach, Anterior Column, Open Approach (ICD-10-PCS; principal; 2017-06-28 07:15)
PROC: 00NW0ZZ Release Cervical Spinal Cord, Open Approach (ICD-10-PCS; principal; 2017-06-28 07:15)
PROC: 0PH304Z Insertion of Internal Fixation Device into Cervical Vertebra, Open Approach (ICD-10-PCS; principal; 2017-06-28 07:15)
DX: M48.02 Spinal stenosis, cervical region (principal); M54.12 Radiculopathy, cervical region; M50.323 Other cervical disc degeneration at C6-C7 level; M50.23 Other cervical disc displacement, cervicothoracic region; M47.12 Other spondylosis with myelopathy, cervical region; R42 Dizziness and giddiness; R05 Cough; R09.02 Hypoxemia; J47.9 Bronchiectasis, uncomplicated; R13.10 Dysphagia, unspecified; K21.9 Gastro-esophageal reflux disease without esophagitis; E03.9 Hypothyroidism, unspecified; D80.4 Selective deficiency of immunoglobulin M [IgM]; J38.01 Paralysis of vocal cords and larynx, unilateral; K59.00 Constipation, unspecified; Z87.09 Personal history of other diseases of the respiratory system; Z87.891 Personal history of nicotine dependence; Z23 Encounter for immunization
CPT/HCPCS: 92526-GN; 92610-GN; 97161-GP; 97165-GO; C1713; G0008; J0690; J1100; J1650; J2001; J2250; J2405; J2550; J2704; J3010

== ENCOUNTER → 2017-08-05 | Outpatient (CLI) | payer OTHER | LOC: CIMAGING 13:30 | PROVIDERS: ATTEND Physician Assistant Surgical | DX: Z09 Encounter for follow-up examination after completed treatment for conditions other than malignant neoplasm (principal); Z98.1 Arthrodesis status | CPT/HCPCS: 72040-PO ==

== ENCOUNTER → 2017-09-16 | Outpatient (CLI) | payer OTHER | LOC: CIMAGING 16:49 | PROVIDERS: ATTEND Neurological Surgery | DX: Z09 Encounter for follow-up examination after completed treatment for conditions other than malignant neoplasm (principal); Z98.1 Arthrodesis status | CPT/HCPCS: 72040-PO ==

== ENCOUNTER → 2017-12-18 | Outpatient (CLI) | payer OTHER | LOC: FIMAGING 12:00 | PROVIDERS: ATTEND Nurse Practitioner | DX: R91.1 Solitary pulmonary nodule (principal) ==

== ENCOUNTER → 2017-12-27 | Outpatient (CLI) | payer OTHER | LOC: FIMAGING 15:13 | PROVIDERS: ATTEND Physician Assistant Surgical | DX: Z09 Encounter for follow-up examination after completed treatment for conditions other than malignant neoplasm (principal); Z98.1 Arthrodesis status ==

== ENCOUNTER → 2018-02-06 | Outpatient (CLI) | payer OTHER | LOC: FIMAGING 13:01 | PROVIDERS: ATTEND Physical Medicine & Rehabilitation | DX: M51.36 Other intervertebral disc degeneration, lumbar region (principal); M12.88 Other specific arthropathies, not elsewhere classified, other specified site ==

== ENCOUNTER → 2018-02-20 | Outpatient (CLI) | payer OTHER ==
[~2018-02-20] MED LIST changes: +GADOBUTROL 10 ML VIAL IVP ONE; -IOPAMIDOL (ISOVUE 370) 100 ML BTL IV ONE
== END ==
LOC: FIMAGING 12:37
PROVIDERS: ATTEND Physical Medicine & Rehabilitation
DX: M50.30 Other cervical disc degeneration, unspecified cervical region (principal); M47.812 Spondylosis without myelopathy or radiculopathy, cervical region; Z98.1 Arthrodesis status
CPT/HCPCS: A9585

== ENCOUNTER → 2018-04-02 | Outpatient (CLI) | payer OTHER | LOC: FIMAGING 13:17 | PROVIDERS: ATTEND Internal Medicine Infectious Disease | DX: J98.4 Other disorders of lung (principal); J47.9 Bronchiectasis, uncomplicated; J21.9 Acute bronchiolitis, unspecified; R59.9 Enlarged lymph nodes, unspecified ==

== ENCOUNTER → 2018-04-29 | Outpatient (CLI) | payer OTHER | PROVIDERS: ATTEND Otolaryngology | DX: K22.9 Disease of esophagus, unspecified (principal); A31.0 Pulmonary mycobacterial infection; R05 Cough | CPT/HCPCS: 92611-GN ==

== ENCOUNTER → 2018-06-25 | Outpatient (CLI) | payer OTHER | LOC: FIMAGING 13:30 | PROVIDERS: ATTEND Obstetrics & Gynecology | DX: Z12.31 Encounter for screening mammogram for malignant neoplasm of breast (principal) ==

== ENCOUNTER → 2019-01-01 | Outpatient (CLI) | payer OTHER | LOC: EMCIMAGING 09:54 | PROVIDERS: ATTEND Physician Assistant | DX: M54.5 Low back pain (principal) | CPT/HCPCS: 72148-PN ==